=== PATIENT | female | born 1940 | race Caucasian/White ===

== ENCOUNTER 2017-08-22 07:32 | Day surgery (SDC) | payer MEDICARE ==
[~2017-08-22 07:32] MED LIST: Sodium Chloride 0.9% 10 ML Syringe FLUSH PRN
[2017-08-22] MEDS ORDERED: Propofol 200 MG/20 ML SDV IV ONE (09:30)
[2017-08-22 10:59] VITALS: BP 144/66
--- NOTE | 2017-08-23 07:26 | OR ---
DATE OF OPERATION: 08/22/2017 SURGEON: Yonny Bird MD PREOPERATIVE DIAGNOSIS: Cataract, right eye. POSTOPERATIVE DIAGNOSIS: Cataract, right eye. OPERATION PERFORMED: Phacoemulsification of cataract, right eye with placement of an Moncada, model [id number], 21.0 diopter, foldable, posterior chamber intraocular lens. FORM STRIPPER: None. DESCRIPTION OF PROCEDURE: Peribulbar anesthetic was performed using a mixture of 2% lidocaine with Wydase. The patient was prepped and draped in the usual fashion. A 3 mm fornix based conjunctival flap was performed at the 10 o'clock position. Hemostasis was obtained using diathermy, and a 2.8 mm grooved near clear corneal incision was then made. A stab incision was made into the anterior chamber at the 12 o'clock position and a second stab wound incision was made underlying the grooved near clear corneal incision. Viscoat was instilled into the anterior chamber, and a continuous tear capsulotomy was performed. Hydrodissection was accomplished with balanced salt solution, and the nucleus was removed in a divide and conquer fashion. The remaining cortical material was removed with the irrigation and aspiration unit. Viscoat was instilled into the anterior chamber, and an Moncada, model [id number], 21.0 diopter, foldable, posterior chamber intraocular lens was placed into the capsular bag, the haptics being positioned at the 1 and 7 o'clock positions. The residual Viscoat was removed from the anterior chamber and the anterior chamber reformed with balanced salt solution. The wound was checked and noted to be watertight. The conjunctiva was secured in its original position with diathermy. Alphagan and Maxitrol Ointment were then placed into the patient's eye. The patient tolerated the procedure well and it was without complication. Elapsed phacoemulsification time was 23.5 seconds. Postoperative instructions as related to activities, as well as medications, were reviewed with the patient. The patient was instructed to return to see me on the day following surgery for the first postoperative check. The patient was also instructed to contact me prior to that time if the patient were to have any problems. /[id number] DEG/MODL CC: LESLIE WILEY PA-C MTDD
== END 2017-08-22 10:59 ==
LOC: FB.SDS 07:32
PROVIDERS: ATTEND Ophthalmology
DX: H26.9 Unspecified cataract (principal); I12.9 Hypertensive chronic kidney disease with stage 1 through stage 4 chronic kidney disease, or unspecified chronic kidney disease; N18.2 Chronic kidney disease, stage 2 (mild); I73.9 Peripheral vascular disease, unspecified; J44.9 Chronic obstructive pulmonary disease, unspecified; G47.33 Obstructive sleep apnea (adult) (pediatric); E78.2 Mixed hyperlipidemia; F33.0 Major depressive disorder, recurrent, mild; Z88.2 Allergy status to sulfonamides; Z90.710 Acquired absence of both cervix and uterus; Z98.890 Other specified postprocedural states; Z87.891 Personal history of nicotine dependence; Z79.82 Long term (current) use of aspirin; Z79.899 Other long term (current) drug therapy
CPT/HCPCS: 00142; 66984; A4217; C1780; J2704; J7050

== ENCOUNTER 2018-07-19 17:41 | Emergency (ER) | payer MEDICARE ==
--- NOTE | 2018-07-19 19:53 | EDM.PDOC ---
ED HPI GENERAL MEDICAL PROBLEM - General Stated Complaint: FALL, PAIN IN L WRIST Time Seen by Provider: 07/19/18 18:00 Source of Information: Reports: Patient History Limitations: Reports: No Limitations - History of Present Illness INITIAL COMMENTS - FREE TEXT/NARRATIVE: Hien fell at home on her left outstretched hand - Related Data Allergies Allergy/AdvReac Type Severity Reaction Status Date / Time Sulfa (Sulfonamide Allergy Cannot Verified 07/19/18 18:57 Antibiotics) Remember Home Meds: Home Meds Aspirin [Alan Chewable Aspirin] 81 mg PO DAILY 09/13/13 [History] FLUoxetine [PROzac] 20 mg PO DAILY 09/13/13 [History] Simvastatin [Zocor] 20 mg PO BEDTIME 09/13/13 [History] Omeprazole 20 mg PO DAILY 08/22/17 [History] amLODIPine [Norvasc] 5 mg PO DAILY 08/22/17 [History] Vit A/Vit C/Vit E/Zinc/Copper [Preservision] 1 tab PO DAILY 07/19/18 [History] Past Medical History HEENT History: Reports: Cataract, Other (See Below) Other HEENT History: Takes eye drops. Cardiovascular History: Reports: Other (See Below) Other Cardiovascular History: Takes BP and cholesterol medication. Respiratory History: Reports: Other (See Below) Other Respiratory History: Takes inhalers. Psychiatric History: Reports: Other (See Below) Other Psychiatric History: Is a , state she greatly misses her . - Past Surgical History HEENT Surgical History: Reports: Cataract Surgery GI Surgical History: Reports: Other (See Below) Other GI Surgeries/Procedures: Has an ultrasound earlier today to check her gallbladder. Social & Family History - Caffeine Use Caffeine Use: Reports: Coffee Review of Systems - Review of Systems Review Of Systems: ROS reveals no pertinent complaints other than HPI. ED EXAM, GENERAL - Physical Exam Exam: See Below Exam Limited By: No Limitations General Appearance: Alert, WD/WN Extremities: Joint Swelling, Arm Pain, Limited Range of Motion, Other (left wrist deformity, tenderness noted) Course - Vital Signs Text/Narrative:: x-ray reviewed with the patient, personally. Splint placed. Preformed.,cock up, and elbow sling - Orders/Labs/Meds Orders: Active Orders 24 hr Category Date Time Status Wrist Comp Min 3V Lt [CR] Stat Exams 07/19/18 18:04 Taken Departure - Departure Time of Disposition: 19:30 Disposition: Home, Self-Care 01 Clinical Impression: Wrist fracture - Discharge Information Instructions: Wrist Splint, Adult, [id number] Referrals: Karl Manuel MD [Primary Care Provider] - 1 Day Additional Instructions: See Dr. Manuel on Monday. - Problem List & Annotations (1) Wrist fracture SNOMED Code(s): 81687154 Code(s): S62.109A - FRACTURE OF UNSP CARPAL BONE, UNSP WRIST, INIT FOR CLOS FX Status: Acute Current Visit: Yes Qualifiers: Encounter type: initial encounter Fracture type: closed Laterality: left Qualified Code(s): S62.102A - Fracture of unspecified carpal bone, left wrist , initial encounter for closed fracture - Problem List Review Problem List Initiated/Reviewed/Updated: Yes - My Orders Last 24 Hours: My Active Orders 07/19/18 18:04 Wrist Comp Min 3V Lt [CR] Stat - Assessment/Plan Last 24 Hours: My Active Orders 07/19/18 18:04 Wrist Comp Min 3V Lt [CR] Stat Plan: patient declined pain medication. Will discharge home to follow-up with Dr. Manuel tomorrow, obtain a hand surgery consultation.
[2018-07-19 21:08] VITALS: BP 176/70
--- NOTE | 2018-07-20 13:00 | CR ---
INDICATION: Fall. LEFT WRIST: Frontal and lateral views of the left forearm revealed demineralization compatible with osteoporosis. Comminuted fractures of the distal radial and ulnar metaphyses are noted with anterior angulation at the radial fracture site and posterior offset of the distal radial fracture fragment of approximately 5 mm. The ulnar fracture site includes ulnar styloid fracture. 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 Degenerative changes are also noted at the first metacarpocarpal joint. Probable old chip fracture fragment, ununited, is noted at the distal phalanx, proximal metaphysis of the thumb. IMPRESSION: Colles fracture with deformity. Osteoporosis. 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 MTDD
== END 2018-07-19 19:10 | disposition home or self-care (01) ==
LOC: FB.ED 17:41
DX: S62.102A Fracture of unspecified carpal bone, left wrist, initial encounter for closed fracture (principal); Z88.2 Allergy status to sulfonamides; W19.XXXA Unspecified fall, initial encounter; Y92.009 Unspecified place in unspecified non-institutional (private) residence as the place of occurrence of the external cause
CPT/HCPCS: 73110-LT; 99283

== ENCOUNTER 2018-07-28 09:26 | Emergency (ER) | payer MEDICARE ==
[2018-07-28] MEDS ORDERED: HYDROmorphone 2 MG/ML SDV IM ONE (10:13)
[2018-07-28] MEDS ORDERED: Ondansetron 4 MG Tab.DIS PO PRN (10:46)
[2018-07-28] MEDS ORDERED: Ondansetron 4 MG Tab.DIS ONE (10:47)
--- NOTE | 2018-07-28 11:24 | EDM.PDOC ---
ED HPI GENERAL MEDICAL PROBLEM - General Chief Complaint: Upper Extremity Injury/Pain Stated Complaint: POST OP PAIN FROM SURGERY Time Seen by Provider: 07/28/18 09:35 Source of Information: Reports: Patient, Family History Limitations: Reports: No Limitations - History of Present Illness INITIAL COMMENTS - FREE TEXT/NARRATIVE: Hien comes to [facility] ED post op 1 days from ORIF R wrist fx. She was sent home with sugar tong splinting and Vicodin 5/325 tabs for pain. She has been unable to obtain adequate analgesic comfort from current prescription. She reports some swelling of the visible digits and sensation in the fingers, but marked pain with any movement. Splint was removed, revealing modest post op swelling of adjacent soft tissues and some ecchymoses, but no hematoma apparent. Wound seems to been healing satisfactorily. L wrist Pain Score (Numeric/FACES): 7 - Related Data Allergies Allergy/AdvReac Type Severity Reaction Status Date / Time Sulfa (Sulfonamide Allergy Cannot Verified 07/28/18 10:04 Antibiotics) Remember Home Meds: Home Meds Aspirin [Alan Chewable Aspirin] 81 mg PO DAILY 09/13/13 [History] FLUoxetine [PROzac] 20 mg PO DAILY 09/13/13 [History] Simvastatin [Zocor] 20 mg PO BEDTIME 09/13/13 [History] Omeprazole 20 mg PO DAILY 08/22/17 [History] amLODIPine [Norvasc] 5 mg PO DAILY 08/22/17 [History] Vit A/Vit C/Vit E/Zinc/Copper [Preservision] 1 tab PO DAILY 07/19/18 [History] oxyCODONE HCl/Acetaminophen [Percocet 5-325 mg Tablet] 1 each PO Q6HR PRN #14 tablet 07/28/18 [Rx] Past Medical History HEENT History: Reports: Cataract, Other (See Below) Other HEENT History: Takes eye drops. Cardiovascular History: Reports: Other (See Below) Other Cardiovascular History: Takes BP and cholesterol medication. Respiratory History: Reports: Other (See Below) Other Respiratory History: Takes inhalers. 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 - Past Surgical History HEENT Surgical History: Reports: Cataract Surgery GI Surgical History: Reports: Other (See Below) Other GI Surgeries/Procedures: Has an ultrasound earlier today to check her gallbladder. Social & Family History - Family History Family Medical History: Noncontributory - Caffeine Use Caffeine Use: Reports: Coffee Review of Systems - Review of Systems Review Of Systems: ROS reveals no pertinent complaints other than HPI. ED EXAM, GENERAL - Physical Exam Exam: See Below Exam Limited By: Physical Impairment (pain in R wrist) General Appearance: Alert, WD/WN, Anxious, Mild Distress Head: Normocephalic Neck: Normal Inspection, Supple Respiratory/Chest: Lungs Clear Cardiovascular: Regular Rate, Rhythm Peripheral Pulses: 3+: Radial (R), 4+: Brachial (L), Brachial (R), Radial (L) Back Exam: Normal Inspection Extremities: Limited Range of Motion (R wrist and hand, with po op edema and some ecchymoses) Neurological: Alert, Oriented, CN II-XII Intact, No Motor/Sensory Deficits Psychiatric: Normal Affect, Anxious Skin Exam: Warm, Dry, Ecchymosis, Wound/Incision (looks fine) Lymphatic: No Adenopathy Course - Vital Signs Text/Narrative:: Following assessment, I administered Dilaudid 2 mg IM and Zofran 4 mg ODT for comfort. The sugar tong splint was refashioned for comfort. Patient tolerated well. Last Recorded V/S: Last Vital Signs Temp 36.6 C 07/28/18 09:44 Pulse 78 07/28/18 09:44 Resp 18 07/28/18 09:44 BP 153/65 H 07/28/18 09:44 Pulse Ox 98 07/28/18 09:44 - Orders/Labs/Meds Orders: Active Orders 24 hr Category Date Time Status Ondansetron [Zofran ODT] Med 07/28/18 10:46 Active 4 mg PO ONETIME PRN Medication Orders Ondansetron HCl (Zofran Odt) 4 mg PO ONETIME PRN PRN Reason: Nausea Last Admin: 07/28/18 10:55 Dose: 4 mg Meds: Medications Generic Name Dose Route Start Last Admin Trade Name Freq PRN Reason Stop Dose Admin Ondansetron HCl 4 mg 07/28/18 10:46 07/28/18 10:55 Zofran Odt PO 4 mg ONETIME PRN Administration Nausea Discontinued Medications Generic Name Dose Route Start Last Admin Trade Name Freq PRN Reason Stop Dose Admin Hydromorphone HCl 2 mg 07/28/18 10:13 07/28/18 10:19 Dilaudid IM 07/28/18 10:14 2 mg ONETIME ONE Administration Ondansetron HCl Confirm 07/28/18 10:47 07/28/18 10:55 Zofran Odt Administered 07/28/18 10:48 Not Given Dose 4 mg .ROUTE .STK-MED ONE Departure - Departure Time of Disposition: 10:50 Disposition: Home, Self-Care 01 Condition: Fair Clinical Impression: Post-operative pain - Discharge Information *PRESCRIPTION DRUG MONITORING PROGRAM REVIEWED*: No *COPY OF PRESCRIPTION DRUG MONITORING REPORT IN PATIENT RUDY: No Prescriptions: oxyCODONE HCl/Acetaminophen [Percocet 5-325 mg Tablet] 1 each PO Q6HR PRN #14 tablet PRN Reason: Breakthrough Pain Instructions: Wrist Fracture Treated With ORIF, Care After, Ondansetron oral dissolving tablet, Hydromorphone injection, Wrist Pain, Adult, [id number] Referrals: Karl Manuel MD [Primary Care Provider] - Forms: ED Department Discharge Additional Instructions: Activity as tolerated. Keep wrist elevated & ice to wrist for 20-30 minutes 4-6 times daily. Continue regular medications, except stop Hydrocodone/Acetaminophen for pain. Instead, use Oxycodone/Acetaminopen 5/325 1 tablet every 6 hours as needed for severe pain. Follow up with regular MD as scheduled. - Problem List & Annotations (1) Post-operative pain SNOMED Code(s): 313431739 Code(s): G89.18 - OTHER ACUTE POSTPROCEDURAL PAIN Status: Acute Current Visit: Yes Annotation/Comment:: I asked patient to stop Vicodin. I dispensed Percocet 5/325 q 6 hr prn for pain, RICE, and continue splinting. She will follow up with Orthopedics. - Problem List Review Problem List Initiated/Reviewed/Updated: Yes - My Orders Last 24 Hours: My Active Orders 07/28/18 10:46 Ondansetron [Zofran ODT] 4 mg PO ONETIME PRN - Assessment/Plan Last 24 Hours: My Active Orders 07/28/18 10:46 Ondansetron [Zofran ODT] 4 mg PO ONETIME PRN Plan: Follow up with Orthopedics.
[2018-07-28 17:45] VITALS: BP 144/55
== END 2018-07-28 10:55 | disposition home or self-care (01) ==
LOC: FB.ED 09:26
DX: S60.212A Contusion of left wrist, initial encounter (principal); S60.221A Contusion of right hand, initial encounter; G89.18 Other acute postprocedural pain; Z88.2 Allergy status to sulfonamides; Z79.82 Long term (current) use of aspirin; Z79.899 Other long term (current) drug therapy; X58.XXXA Exposure to other specified factors, initial encounter
CPT/HCPCS: 96372; 99283; A9270; J1170

== ENCOUNTER 2019-11-04 06:43 | Day surgery (SDC) | payer MEDICARE ==
[2019-11-04] MEDS ORDERED: Lidocaine 1% PF 2 ML SDV INJECT ONE (06:44)
[2019-11-04] MEDS ORDERED: Propofol 200 MG/20 ML SDV IV ONE (06:44)
[2019-11-04] MEDS ORDERED: Sodium Chloride 0.9% 10 ML Syringe FLUSH PRN (06:45)
[2019-11-04] MEDS ORDERED: Lactated Ringers 1,000 ML IV SCH (06:45)
--- NOTE | 2019-11-04 08:17 | PCM.OPNOTE ---
- General Post-Op/Procedure Note Date of Surgery/Procedure: 11/04/19 Operative Procedure(s): c scope with bx Findings: ascending colon polyp x2 transverse colon polyp sigmoid diverticulosis Pre Op Diagnosis: personal hx of colon polyps Post-Op Diagnosis: ascending colon polyp x2. transverse colon polyp. sigmoid diverticulosis Anesthesia Technique: MAC Primary Surgeon: Addison Siegel Anesthesia Provider: Alexey Cline Pathology: ascending colon polyp x2 transverse colon polyp Complications: None Condition: Good Free Text/Narrative:: see dictation
[2019-11-04 09:45] VITALS: PULSE 75
[2019-11-04 09:46] VITALS: BP 136/67
--- NOTE | 2019-11-04 15:04 | OR ---
DATE OF OPERATION: 11/04/2019 SURGEON: Addison Siegel MD PROCEDURE PERFORMED: Colonoscopy with cold forceps biopsy. PREOPERATIVE DIAGNOSIS: Personal history of colon polyps. POSTOPERATIVE DIAGNOSES: Ascending colon polyps x2, transverse colon x1, and sigmoid diverticulosis. INDICATIONS FOR PROCEDURE: This is a 78-year-old white female who presents with the above-mentioned history. She was offered and accepted the C-scope. DESCRIPTION OF OPERATION: After an excellent IV sedation was administered, digital rectal exam was performed. No marked abnormality was noted. Flexible colonoscope was inserted and advanced to the cecum. Prep was excellent. Following findings were noted. Ascending colon, in the area of the cecum, two small polypoid lesions, biopsied and sent for permanent. Transverse colon, a small polypoid lesion in the proximal portion, biopsied and sent for permanent. Descending colon, unremarkable. Sigmoid, mild diverticulosis. Rectum and anus, unremarkable. The patient tolerated the procedure well and was taken to recovery. Results by letter. /[id number] /RYANL
== END 2019-11-04 09:20 | disposition home or self-care (01) ==
LOC: FB.SDS 06:43
PROVIDERS: ATTEND Surgery
DX: Z12.11 Encounter for screening for malignant neoplasm of colon (principal); D12.2 Benign neoplasm of ascending colon; K63.5 Polyp of colon; K57.30 Diverticulosis of large intestine without perforation or abscess without bleeding; J44.9 Chronic obstructive pulmonary disease, unspecified; E78.2 Mixed hyperlipidemia; I12.9 Hypertensive chronic kidney disease with stage 1 through stage 4 chronic kidney disease, or unspecified chronic kidney disease; N18.2 Chronic kidney disease, stage 2 (mild); M48.061 Spinal stenosis, lumbar region without neurogenic claudication; M47.816 Spondylosis without myelopathy or radiculopathy, lumbar region; F41.9 Anxiety disorder, unspecified; F32.9 Major depressive disorder, single episode, unspecified; F33.0 Major depressive disorder, recurrent, mild; Z86.010 Personal history of colon polyps; Z79.899 Other long term (current) drug therapy; Z88.2 Allergy status to sulfonamides
CPT/HCPCS: 00811-QZ; 88305; J2001; J2704; J7120

== ENCOUNTER 2020-10-30 08:33 | Emergency (ER) | payer MEDICARE ==
--- NOTE | 2020-10-30 10:02 | EDM.PDOC ---
ED HPI GENERAL MEDICAL PROBLEM - General Chief Complaint: Abdominal Pain Stated Complaint: SOB,WEAKNESS Time Seen by Provider: 10/30/20 09:30 Source of Information: Reports: Patient History Limitations: Reports: No Limitations - History of Present Illness INITIAL COMMENTS - FREE TEXT/NARRATIVE: Brought in by daughter from home States she has been having intermittent abd pain , mostly in the LLQ on and off with associated constipation. Pain is sometimes sharp shooting pain with radiation to the left side of her back. In addition has distended abdomen . Feels she is always constipated , on and off, has gaseous distension of abdomen had colonoscopy 3-4 yrs ago and was told she has a polyp that was removed On review of her chart , noted to have a history of colonic diverticulosis Pt notes she has been ill for 3 weeks Onset: Gradual Onset Date: 10/10/20 Duration: Week(s): (3), Getting Worse, Waxing/Waning Location: Reports: Abdomen Quality: Reports: Ache, Dull, Stabbing Severity: Moderate Improves with: Reports: None Worsens with: Reports: Eating Associated Symptoms: Reports: Malaise, Weakness Left Lower Abdomen Pain Score (Numeric/FACES): 2 - Related Data Allergies Allergy/AdvReac Type Severity Reaction Status Date / Time Iodinated Contrast Media Allergy Cannot Verified 10/30/20 11:26 Remember Sulfa (Sulfonamide Allergy Cannot Verified 11/04/19 07:31 Antibiotics) Remember Home Meds: Home Meds Simvastatin [Zocor] 20 mg PO BEDTIME 09/13/13 [History] amLODIPine [Norvasc] 10 mg PO DAILY 08/22/17 [History] Lutein/Min/Vit C/Vit E Acetate [Ocuvite Lutein] 1 cap PO DAILY 10/31/19 [History] Venlafaxine [Effexor XR] 75 mg PO DAILY 10/31/19 [History] Cefuroxime [Ceftin] 250 mg PO BID #20 tablet 10/30/20 [Rx] Omeprazole Magnesium [Prilosec Otc] 20 mg PO DAILY 10/30/20 [History] Ondansetron [Zofran ODT] 4 mg PO Q6H PRN #20 tab.dis 10/30/20 [Rx] Past Medical History HEENT History: Reports: Cataract, Glaucoma, Macular Degeneration Other HEENT History: Takes eye drops. 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 - Infectious Disease History Infectious Disease History: Reports: Chicken Pox - Past Surgical History HEENT Surgical History: Reports: Tonsillectomy Cardiovascular Surgical History: Reports: Coronary Artery Bypass Female Surgical History: Reports: Hysterectomy Musculoskeletal Surgical History: Reports: ORIF Other Musculoskeletal Surgeries/Procedures:: ORIF LEFT DISTAL RADIUS AND ULNA, WRIST FRACTURE SURGERY, BUNIONECTOMY Social & Family History - Family History Family Medical History: No Pertinent Family History - Tobacco Use Tobacco Use Status *Q: Former Tobacco User Used Tobacco, but Quit: Yes Month/Year Tobacco Last Used: 50 - Caffeine Use Caffeine Use: Reports: Coffee - Recreational Drug Use Recreational Drug Use: No ED ROS GENERAL - Review of Systems Review Of Systems: See Below Constitutional: Reports: Malaise, Weakness, Fatigue, Decreased Appetite. Denies: Fever HEENT: Reports: No Symptoms Respiratory: Reports: No Symptoms Cardiovascular: Reports: No Symptoms Endocrine: Reports: Fatigue GI/Abdominal: Reports: Abdominal Pain, Anorexia, Constipation, Diarrhea, Decreased Appetite, Distension, Flatus, Nausea. Denies: Hematemesis, Hematochezia, Melena, Mucous in Stool : Reports: Urgency Musculoskeletal: Reports: Back Pain (left flank) Skin: Reports: No Symptoms Neurological: Reports: No Symptoms Psychiatric: Reports: No Symptoms Hematologic/Lymphatic: Reports: No Symptoms Immunologic: Reports: No Symptoms ED EXAM, GI/ABD - Physical Exam Exam: See Below Exam Limited By: No Limitations General Appearance: Alert, WD/WN Eyes: Bilateral: EOMI Ears: Normal External Exam Nose: Normal Inspection Throat/Mouth: Normal Inspection Head: Atraumatic, Normocephalic Neck: Supple, Non-Tender Respiratory/Chest: No Respiratory Distress, Lungs Clear Cardiovascular: Normal Peripheral Pulses, Regular Rate, Rhythm GI/Abdominal Exam: Soft, Non-Tender Back Exam: Normal Inspection, Full Range of Motion Extremities: Normal Inspection, Normal Range of Motion Neurological: Alert, Oriented, No Motor/Sensory Deficits Psychiatric: Normal Affect, Normal Mood Skin Exam: Dry, Intact Lymphatic: No Adenopathy Course - Vital Signs Last Recorded V/S: Last Vital Signs Temp 36.3 C 10/30/20 09:27 Pulse 80 10/30/20 10:30 Resp 18 10/30/20 10:30 BP 162/82 H 10/30/20 10:30 Pulse Ox 100 10/30/20 10:30 - Orders/Labs/Meds Labs: Laboratory Tests 10/30/20 10/30/20 10/30/20 Range/Units 09:58 10:30 10:30 WBC 6.2 (3.0-10.3) x10-3/uL RBC 3.91 (3.60-5.20) x10(6)uL Hgb 12.4 (11.4-15.5) g/dL Hct 37.8 (34.2-48.2) % MCV 96.8 (76.7-100.5) fL MCH 31.7 (23.9-33.9) pg MCHC 32.8 (31.9-34.8) g/dL RDW 12.6 (12.3-16.5) % Plt Count 286 (151-488) x10(3)uL MPV 9.2 (7.1-12.4) fL Neut % (Auto) 76.3 H (30.8-76.2) % Lymph % (Auto) 15.6 L (18.4-52.1) % [place] % (Auto) 6.8 (4.4-15.7) % Eos % (Auto) 0.5 L (0.6-8.1) % Baso % (Auto) 0.8 (0.2-1.5) % Neut # (Auto) 4.7 (1.5-6.3) x10-3/uL Lymph # (Auto) 1.0 (1.0-4.4) x10-3/uL Baldwin # (Auto) 0.4 (0.3-1.0) x10-3/uL Eos # (Auto) 0.0 (0.0-0.8) x10-3/uL Baso # (Auto) 0.0 (0.0-0.1) x10-3/uL Sodium 136 (135-145) mmol/L Potassium 3.6 (3.5-5.3) mmol/L Chloride 101 (100-110) mmol/L Carbon Dioxide 21 (21-32) mmol/L BUN 14 (7-18) mg/dL Creatinine 1.2 H (0.55-1.02) mg/dL Est Cr Clr Drug Dosing 28.20 mL/min Estimated GFR (MDRD) 44 L (>60) BUN/Creatinine Ratio 11.7 (9-20) Glucose 130 H (80-116) mg/dL Calcium 8.9 (8.6-10.2) mg/dL Total Bilirubin 0.5 (0.1-1.3) mg/dL AST 32 H (5-25) IU/L ALT 30 (12-36) U/L Alkaline Phosphatase 89 (56-112) IU/L NT-Pro-B Natriuret Pep (<=450) pg/mL Total Protein 7.4 (6.0-8.0) g/dL Albumin 3.5 (3.2-4.6) g/dL Globulin 3.9 g/dL Albumin/Globulin Ratio 0.9 Urine Color (YELLOW) Urine Appearance (CLEAR) Urine pH (5.0-6.5) Ur Specific [place] (1.010-1.025) Urine Protein (NEGATIVE) mg/dL Urine Glucose (UA) (NORMAL) mg/dL Urine Ketones (NEGATIVE) mg/dL Urine Occult Blood (NEGATIVE) Urine Nitrite (NEGATIVE) Urine Bilirubin (NEGATIVE) Urine Urobilinogen (NEGATIVE) mg/dL Ur Leukocyte Esterase (NEGATIVE) Urine WBC (0-5) Ur Squamous Epith Cells (NS,R,O) Urine Bacteria (NS) SARS-CoV-2 RNA (RODGER) Negative (NEGATIVE) 10/30/20 10/30/20 Range/Units 10:30 11:05 WBC (3.0-10.3) x10-3/uL RBC (3.60-5.20) x10(6)uL Hgb (11.4-15.5) g/dL Hct (34.2-48.2) % MCV (76.7-100.5) fL MCH (23.9-33.9) pg MCHC (31.9-34.8) g/dL RDW (12.3-16.5) % Plt Count (151-488) x10(3)uL MPV (7.1-12.4) fL Neut % (Auto) (30.8-76.2) % Lymph % (Auto) (18.4-52.1) % Baldwin % (Auto) (4.4-15.7) % Eos % (Auto) (0.6-8.1) % Baso % (Auto) (0.2-1.5) % Neut # (Auto) (1.5-6.3) x10-3/uL Lymph # (Auto) (1.0-4.4) x10-3/uL Baldwin # (Auto) (0.3-1.0) x10-3/uL Eos # (Auto) (0.0-0.8) x10-3/uL Baso # (Auto) (0.0-0.1) x10-3/uL Sodium (135-145) mmol/L Potassium (3.5-5.3) mmol/L Chloride (100-110) mmol/L Carbon Dioxide (21-32) mmol/L BUN (7-18) mg/dL Creatinine (0.55-1.02) mg/dL Est Cr Clr Drug Dosing mL/min Estimated GFR (MDRD) (>60) BUN/Creatinine Ratio (9-20) Glucose (80-116) mg/dL Calcium (8.6-10.2) mg/dL Total Bilirubin (0.1-1.3) mg/dL AST (5-25) IU/L ALT (12-36) U/L Alkaline Phosphatase (56-112) IU/L NT-Pro-B Natriuret Pep 243 (<=450) pg/mL Total Protein (6.0-8.0) g/dL Albumin (3.2-4.6) g/dL Globulin g/dL Albumin/Globulin Ratio Urine Color Yellow (YELLOW) Urine Appearance Slightly cloudy (CLEAR) Urine pH 7.0 H (5.0-6.5) Ur Specific [place] 1.010 (1.010-1.025) Urine Protein Negative (NEGATIVE) mg/dL Urine Glucose (UA) Normal (NORMAL) mg/dL Urine Ketones Negative (NEGATIVE) mg/dL Urine Occult Blood Negative (NEGATIVE) Urine Nitrite Negative (NEGATIVE) Urine Bilirubin Negative (NEGATIVE) Urine Urobilinogen 1 H (NEGATIVE) mg/dL Ur Leukocyte Esterase Moderate H (NEGATIVE) Urine WBC 40-50 H (0-5) Ur Squamous Epith Cells Few H (NS,R,O) Urine Bacteria Moderate H (NS) SARS-CoV-2 RNA (RODGER) (NEGATIVE) Meds: Medications Discontinued Medications Generic Name Dose Route Start Last Admin Trade Name Freq PRN Reason Stop Dose Admin Sodium Chloride 1,000 mls @ 100 mls/hr 10/30/20 10:15 10/30/20 10:10 Normal Saline IV 100 mls/hr ASDIRECTED LUBA Administration Ciprofloxacin/Dextrose 400 mg/ 200 mls @ 200 mls/hr 10/30/20 11:44 10/30/20 11:52 Premix IV 10/30/20 12:43 200 mls/hr ONETIME ONE Administration Sodium Chloride 500 mls @ 500 mls/hr 10/30/20 14:30 Normal Saline IV ASDIRECTED LUBA Iopamidol 100 ml 10/30/20 10:19 Isovue-370 (76%) IV 10/30/20 10:20 . DIRECTED ONE Ondansetron HCl 4 mg 10/30/20 13:19 10/30/20 13:48 Zofran IVPUSH 10/30/20 13:20 4 mg ONETIME ONE Administration Pantoprazole Sodium 40 mg 10/30/20 10:09 10/30/20 10:20 Protonix Iv IVPUSH 10/30/20 10:10 40 mg ONETIME ONE Administration - Re-Assessments/Exams Free Text/Narrative Re-Assessment/Exam: 10/30/20 14:16 pt given protonix and iVf had UA done : noted to have indications for UTI WBC showed left shift pt started on Ciprofloxacin and urine sent for cultures Departure - Departure Time of Disposition: 14:30 Disposition: Home, Self-Care 01 Condition: Good Clinical Impression: Abdominal pain, Sigmoid diverticulosis, UTI (urinary tract infection), uncomplicated - Discharge Information *PRESCRIPTION DRUG MONITORING PROGRAM REVIEWED*: Not Applicable *COPY OF PRESCRIPTION DRUG MONITORING REPORT IN PATIENT RUDY: Not Applicable Prescriptions: Cefuroxime [Ceftin] 250 mg PO BID #20 tablet Ondansetron [Zofran ODT] 4 mg PO Q6H PRN #20 tab.dis PRN Reason: Nausea Instructions: Constipation, Adult, [id number], Urinary Tract Infection, Adult, [id number] Referrals: PCP,None [Primary Care Provider] - Forms: ED Department Discharge Additional Instructions: Increase intake of fruits , vegetables and fiber ( carrot puree etc) Increase fluid intake Follow up with your doctor : you will need to repeat UA after completion of antibiotics Take Probiotics ( acidofilus etc) as discussed Sepsis Event Note (ED) - Evaluation Sepsis Screening Result: No Definite Risk
[2020-10-30] MEDS ORDERED: Pantoprazole 40 MG Vial IVPUSH ONE (10:09)
[2020-10-30] MEDS ORDERED: Sodium Chloride 0.9% 1,000 ML IV SCH (10:15)
[2020-10-30] MEDS ORDERED: Iopamidol 755 Mg/ML 100 ML Bottle IV ONE (10:19)
[2020-10-30] MEDS ORDERED: Ciprofloxacin in D5W 400 MG in Premix Bag 1 BAG IV ONE ×2 (11:44)
[2020-10-30 11:51] VITALS: BP 162/82; PULSE 80
[2020-10-30] MEDS ORDERED: Ondansetron 4 MG/2 ML SDV IVPUSH ONE (13:19)
[2020-10-30] MEDS ORDERED: Sodium Chloride 0.9% 500 ML IV SCH (14:30)
== END 2020-10-30 14:32 | disposition home or self-care (01) ==
LOC: FB.ED 08:33
DX: K57.30 Diverticulosis of large intestine without perforation or abscess without bleeding (principal); N39.0 Urinary tract infection, site not specified; E78.00 Pure hypercholesterolemia, unspecified; J44.9 Chronic obstructive pulmonary disease, unspecified; I12.9 Hypertensive chronic kidney disease with stage 1 through stage 4 chronic kidney disease, or unspecified chronic kidney disease; N18.2 Chronic kidney disease, stage 2 (mild); F32.9 Major depressive disorder, single episode, unspecified; Z91.041 Radiographic dye allergy status; Z88.2 Allergy status to sulfonamides; Z79.899 Other long term (current) drug therapy; Z87.891 Personal history of nicotine dependence; Z20.828 Contact with and (suspected) exposure to other viral communicable diseases
CPT/HCPCS: 36415; 74176; 80053; 81001; 83880; 85025; 87086; 96365; 96375; 99285; C9113; J0744; J2405; J7030; U0002; 99283

== ENCOUNTER 2021-09-04 08:36 | Emergency (ER) | payer MEDICARE ==
[2021-09-04] MEDS ORDERED: Acetaminophen/oxyCODONE 325-5 MG Tab PO STA (08:43)
--- NOTE | 2021-09-04 08:49 | EDM.PDOC ---
ED HPI GENERAL MEDICAL PROBLEM - General Chief Complaint: Trauma Stated Complaint: FELL Time Seen by Provider: 09/04/21 08:44 Source of Information: Reports: Patient, Old Records, RN History Limitations: Reports: No Limitations - History of Present Illness INITIAL COMMENTS - FREE TEXT/NARRATIVE: 80 yo female stumbled against a small table as she got out of bed about 0800h today injuring her R chest wall. No SOB, but pain with breathing. No treatment before arrival. Here with family. 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: Other (see below) (none) Right Chest Pain Score (Numeric/FACES): 10 - Related Data Allergies Allergy/AdvReac Type Severity Reaction Status Date / Time Iodinated Contrast Media Allergy Cannot Verified 10/30/20 11:26 Remember Sulfa (Sulfonamide Allergy Cannot Verified 11/04/19 07:31 Antibiotics) Remember Home Meds: Home Meds Simvastatin [Zocor] 20 mg PO BEDTIME 09/13/13 [History] amLODIPine [Norvasc] 10 mg PO DAILY 08/22/17 [History] Lutein/Min/Vit C/Vit E Acetate [Ocuvite Lutein] 1 cap PO DAILY 10/31/19 [History] Venlafaxine [Effexor XR] 75 mg PO DAILY 10/31/19 [History] Cefuroxime [Ceftin] 250 mg PO BID #20 tablet 10/30/20 [Rx] Omeprazole Magnesium [Prilosec Otc] 20 mg PO DAILY 10/30/20 [History] Ondansetron [Zofran ODT] 4 mg PO Q6H PRN #20 tab.dis 10/30/20 [Rx] Acetaminophen/HYDROcodone [HYDROcodone-Acetaminophen 5-325 MG *] 1 tab PO Q4H PRN #10 each 09/04/21 [Rx] Ondansetron [Zofran ODT] 4 mg PO Q6H PRN #8 tab.dis 09/04/21 [Rx] Past Medical History HEENT History: Reports: Cataract, Glaucoma, Macular Degeneration Other HEENT History: Takes eye drops. 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 - Infectious Disease History Infectious Disease History: Reports: Chicken Pox - Past Surgical History HEENT Surgical History: Reports: Tonsillectomy Cardiovascular Surgical History: Reports: Coronary Artery Bypass Female Surgical History: Reports: Hysterectomy Musculoskeletal Surgical History: Reports: ORIF Other Musculoskeletal Surgeries/Procedures:: ORIF LEFT DISTAL RADIUS AND ULNA, WRIST FRACTURE SURGERY, BUNIONECTOMY Social & Family History - Family History Family Medical History: No Pertinent Family History - Caffeine Use Caffeine Use: Reports: Coffee Review of Systems - Review of Systems Review Of Systems: See Below Constitutional: Reports: No Symptoms Respiratory: Reports: Pleuritic Chest Pain (R sided). Denies: Shortness of Breath, Wheezing, Cough, Sputum Cardiovascular: Reports: Chest Pain (R chest wall) ED EXAM, GENERAL - Physical Exam Exam: See Below Exam Limited By: No Limitations General Appearance: Alert, WD/WN, No Apparent Distress Eye Exam: Bilateral Eye: Normal Inspection Ears: Normal External Exam, Normal Canal, Hearing Grossly Normal. No: Hearing Loss Ear Exam: Bilateral Ear: Auricle Normal, Canal Normal Nose: Normal Inspection, No Blood Throat/Mouth: Normal Lips, Normal Voice, No Airway Compromise Head: Atraumatic, Normocephalic Neck: Normal Inspection Respiratory/Chest: No Respiratory Distress, Lungs Clear, Normal Breath Sounds, N o Accessory Muscle Use. No: Chest Non-Tender (rib tenderness to R side of chest. ) Cardiovascular: Regular Rate, Rhythm, No Edema Extremities: Normal Inspection Neurological: Alert, Oriented, CN II-XII Intact, Normal Cognition, No Motor/Sensory Deficits Psychiatric: Normal Affect, Normal Mood Skin Exam: Warm, Dry, Intact, Normal Color, No Rash. No: Ecchymosis Course - Vital Signs Last Recorded V/S: Last Vital Signs Temp 36.3 C 09/04/21 08:36 Pulse 75 09/04/21 08:36 Resp 20 09/04/21 08:36 BP 147/74 H 09/04/21 08:36 Pulse Ox 100 09/04/21 08:36 - Orders/Labs/Meds Orders: Active Orders 24 hr Category Date Time Status Ribs 3V wo Chest Rt [CR] Stat Exams 09/04/21 08:47 Ordered Meds: Medications Discontinued Medications Generic Name Dose Route Start Last Admin Trade Name Freq PRN Reason Stop Dose Admin Ondansetron HCl 4 mg 09/04/21 09:24 09/04/21 09:30 Ondansetron 4 Mg Tab.Dis PO 09/04/21 09:25 4 mg ONETIME ONE Administration Oxycodone/Acetaminophen 1 tab 09/04/21 08:43 09/04/21 08:45 Acetaminophen/Oxycodone 325-5 Mg Tab PO 09/04/21 08:44 1 tab ONETIME STA Administration - Radiology Interpretation Free Text/Narrative:: R rib [id number] ? 8th rib fracture. - Re-Assessments/Exams Free Text/Narrative Re-Assessment/Exam: 09/04/21 09:25 Got good relief with the Percocet, but did develop nausea from it. Departure - Departure Time of Disposition: 09:55 Disposition: Home, Self-Care 01 Condition: Fair Clinical Impression: Right rib fracture Qualifiers: Encounter type: initial encounter Rib fracture type: single rib Fracture type: closed Qualified Code(s): S22.31XA - Fracture of one rib, right side, initial encounter for closed fracture - Discharge Information *PRESCRIPTION DRUG MONITORING PROGRAM REVIEWED*: Not Applicable *COPY OF PRESCRIPTION DRUG MONITORING REPORT IN PATIENT RUDY: Not Applicable Prescriptions: Acetaminophen/HYDROcodone [HYDROcodone-Acetaminophen 5-325 MG *] 1 tab PO Q4H PRN #10 each PRN Reason: Pain Ondansetron [Zofran ODT] 4 mg PO Q6H PRN #8 tab.dis PRN Reason: Nausea Forms: ED Department Discharge Additional Instructions: Use ibuprofen 200-400 mg every 6 hrs with food for pain relief. Add either acetaminophen OR hydrocodone/APAP for added relief. Recheck with your doctor on Monday to have him reassess your breathing and how you are doing with this pain medication. Get ample fluids and fiber in your diet to prevent constipation from the pain med. Use Zofran as directed/needed for nausea control. Sepsis Event Note (ED) - Focused Exam Vital Signs: Vital Signs Temp Pulse Resp BP Pulse Ox 09/04/21 08:36 36.3 C 75 20 147/74 H 100 - My Orders Last 24 Hours: My Active Orders 09/04/21 08:47 Ribs 3V wo Chest Rt [CR] Stat - Assessment/Plan Last 24 Hours: My Active Orders 09/04/21 08:47 Ribs 3V wo Chest Rt [CR] Stat
[2021-09-04 08:52] VITALS: BP 147/74; PULSE 75
[2021-09-04] MEDS ORDERED: Ondansetron 4 MG Tab.DIS PO ONE (09:24)
--- NOTE | 2021-09-06 10:37 | CR ---
INDICATION: Fell against a table this a.m. RIGHT RIBS WITHOUT CHEST: Four images of the right ribs were obtained 09/04/21 and compared with chest x-ray from 04/10/09. The heart did not appear grossly enlarged. The aorta is slightly tortuous. Dextroconvex scoliosis of the mid thoracic spine is noted of mild degree with dextroconcave scoliosis at the thoracolumbar spine. The latter has a rotatory component. At the distal eighth rib laterally, there is a transverse fracture with minimal medial angulation at the fracture site. No other bone or joint abnormality was suggested. IMPRESSION: Eighth rib fracture site in satisfactory position and alignment. It lies directly over the right lobe of the liver. MTDD
== END 2021-09-04 10:12 | disposition home or self-care (01) ==
LOC: FB.ED 08:36
DX: S22.31XA Fracture of one rib, right side, initial encounter for closed fracture (principal); Z88.2 Allergy status to sulfonamides; Z91.041 Radiographic dye allergy status; E78.00 Pure hypercholesterolemia, unspecified; I12.9 Hypertensive chronic kidney disease with stage 1 through stage 4 chronic kidney disease, or unspecified chronic kidney disease; N18.2 Chronic kidney disease, stage 2 (mild); J44.9 Chronic obstructive pulmonary disease, unspecified; Z79.899 Other long term (current) drug therapy; W22.8XXA Striking against or struck by other objects, initial encounter
CPT/HCPCS: 71100; 99283; A9270

== ENCOUNTER 2022-12-22 08:14 | Day surgery (SDC) | payer MEDICARE ==
[2022-12-22] MEDS ORDERED: Propofol 200 MG/20 ML SDV IV ONE (08:15)
[2022-12-22] MEDS ORDERED: Lidocaine 2% 5 ML SDV INJECT ONE (08:15)
[2022-12-22] MEDS ORDERED: Labetalol 100 MG/20 ML MDV IV ONE (08:15)
[2022-12-22] MEDS ORDERED: Sodium Chloride 0.9% 10 ML Syringe FLUSH PRN (08:30)
[2022-12-22] MEDS: Lactated Ringers 1,000 ML IV SCH ×2 (08:50→09:43)
[2022-12-22 09:19] VITALS: BP 164/86; PULSE 76
== END 2022-12-22 11:20 | disposition home or self-care (01) ==
LOC: FB.SDS 08:14
PROVIDERS: ATTEND Surgery
DX: D12.6 Benign neoplasm of colon, unspecified (principal); K57.30 Diverticulosis of large intestine without perforation or abscess without bleeding; I50.9 Heart failure, unspecified; I11.0 Hypertensive heart disease with heart failure; F41.9 Anxiety disorder, unspecified; F32.A Depression, unspecified; K21.9 Gastro-esophageal reflux disease without esophagitis; M19.90 Unspecified osteoarthritis, unspecified site; E78.5 Hyperlipidemia, unspecified; J44.9 Chronic obstructive pulmonary disease, unspecified; G47.30 Sleep apnea, unspecified; E66.9 Obesity, unspecified; Z88.2 Allergy status to sulfonamides; Z86.010 Personal history of colon polyps; Z79.899 Other long term (current) drug therapy; Z98.890 Other specified postprocedural states; Z90.49 Acquired absence of other specified parts of digestive tract; Z87.891 Personal history of nicotine dependence; Z68.27 Body mass index [BMI] 27.0-27.9, adult; Z80.0 Family history of malignant neoplasm of digestive organs
CPT/HCPCS: 00812-QZ; 88305; J2704; J3490; J7120